=== PATIENT | male | born 1940 | race Two or more races ===

== ENCOUNTER 2024-08-07 21:38 | Emergency (ER) | payer OTHER ==
[~2024-08-07] VITALS: Ht 162.6 cm; Wt 78.0 kg
[2024-08-07 21:46] VITALS: BP 135/76; O2SAT 97
[2024-08-07] MEDS ORDERED: COZAAR25 MG (21:48)
[2024-08-07] MEDS ORDERED: LEVOTHYROXINE25 MCG (21:48)
[2024-08-07] MEDS ORDERED: SIMVASTATIN5 MG (21:48)
[2024-08-07] MEDS ORDERED: KATERZIA1 MG/1 ML (21:49)
[2024-08-07] MEDS ORDERED: PANTOPRAZOLE SODIUM 40 MG/VIAL VIAL IV PUSH STA (22:04)
[2024-08-07 22:31] LABS: BASO % 0.8 % (0.1-1.2); EOS # 0.25 (0.04-0.54); EOS % 2.9 % (0.7-7.0); HEMATOCRIT 39.4 % (40.1-51.0); HEMOGLOBIN 13.7 g/dL (13.7-17.5); LYMPH % 16.3 % (19.3-53.1); MEAN CORPUSCULAR HEMOGLOBIN 30.5 pg (25.6-32.2); MONO % 8.1 % (4.7-12.5); NEUT # 6.12 (1.56-6.13); NEUT % 71.2 % (34.0-71.1); PLATELET COUNT 302 K/uL (163-369); RED BLOOD COUNT 4.49 M/uL (4.63-6.08); RED CELL DISTRIBUTION WIDTH 13.7 % (11.6-14.4)
[2024-08-07 22:58] LABS: ALBUMIN 3.6 gm/dL (3.4-5.0); BILIRUBIN TOTAL 0.56 mg/dL (0.3-1.2); CALCIUM 8.6 mg/dL (8.5-10.1); CREATININE SERUM 1.07 mg/dL (0.70-1.30); GFR 65.84; GLOBULINA 3.5 G/DL (2.4-3.5); POTASSIUM 3.85 mEq/L (3.5-5.1); TOTAL PROTEIN 7.1 gm/dL (6.4-8.2)
== END 2024-08-07 23:08 | disposition home or self-care (01) ==
LOC: ER 21:57
PROVIDERS: General Practice
DX: K29.70 Gastritis, unspecified, without bleeding (principal); I10 Essential (primary) hypertension
CPT/HCPCS: 36415; 96365; 99282; J3490